=== PATIENT | male | born 1935 | race Caucasian/White ===

== ENCOUNTER 2017-01-22 02:30 | Observation (INO) | payer MEDICARE ==
[2017-01-22] MEDS ORDERED: Sodium Chloride 0.9% 1000 ML 1,000 ML IV STA (02:35)
[2017-01-22] MEDS ORDERED: Rocephin 1000 MG INJ** 1,000 MG in Sodium Chloride 0.9% 100 ML IVPB 100 ML IV ONE (02:35)
[2017-01-22] MEDS ORDERED: Zithromax 500 MG/ 250 ML NaCl Premix 500 MG/250 ML IVPB IV STA (02:35)
[2017-01-22] MEDS ORDERED: Xopenex 1.25 MG/0.5 ML UD NEBULE IH ONE ×2 (02:35→02:56)
--- NOTE | 2017-01-22 02:45 | ERPHSYRPT ---
- History of Present Illness Time Seen by Provider: 01/22/17 02:31 Source: patient, family () Exam Limitations: no limitations Physician History: YESTERDAY PT CHOKED AND AFTER STARTED RATTLING IN THE CHEST WITH CHILLS. TODAY PT HAS HAD SHORTNESS OF AIR. CHEST PAIN, ABDOMINAL PAIN, VOMITING, FEVER ALL DENIED. Allergies/Adverse Reactions: vancomycin Allergy (Verified 01/22/17 03:17) aspirin Adverse Reaction (Severe, Verified 01/22/17 03:17) Home Medications: Clopidogrel Bisulfate 75 mg [PLAVIX 75 MG Tablet] 75 mg PO DAILY 10/19/12 [History] Levothyroxine Sodium 75 Mcg [Synthroid 75 Mcg] 75 mcg PO DAILY 10/19/12 [ History] Methyl-B12/l-Mefolate/B6 Phos [Metanx Tablet] 1 each PO DAILY 10/19/12 [History] Metoprolol Tartrate 25 mg [Lopressor 25MG Tab] 25 mg PO BID 10/19/12 [ History] Pramipexole Di-HCl [Pramipexole Dihydrochloride] 1 mg PO BID 10/19/12 [History] Rasagiline Mesylate [Azilect] 1 mg PO DAILY 10/19/12 [History] Simvastatin 10 mg [Zocor 10MG] 10 mg PO DAILY 03/11/13 [History] Ferrous Sulfate 325 mg [Feosol 325 mg] 325 ng PO DAILY 12/31/14 [History] PANTOPRAZOLE 40 mg Tablet [Protonix 40MG Tablet] 40 mg PO DAILY 12/31/14 [ History] Albuterol 2.5 mg/0.5 ml [PROVENTIL Solution 2.5 MG/0.5 ML] 2.5 mg IH Q4H PRN PRN 01/22/17 [History] Alpha Lipoic Acid 200 mg PO BID 01/22/17 [History] Ascorbic Acid 500 mg [Vitamin C 500 MG] 500 mg PO DAILY 01/22/17 [History] Carbidopa/Levodopa [Sinemet 25-100 mg Tablet] 1 each PO TID 01/22/17 [History] Furosemide 20 mg [Lasix 20 mg] 20 mg PO UD 01/22/17 [History] Midodrine HCl 5 mg [Proamatine 5 mg] 5 mg PO TID 01/22/17 [History] Potassium Chloride 10 Meq Tab* [Klor Con 10 MEQ] 10 meq PO UD 01/22/17 [ History] Pregabalin [Lyrica] 200 mg PO BID 01/22/17 [History] Hx Tetanus, Diphtheria Vaccination/Date Given: Yes Hx Influenza Vaccination/Date Given: Yes Hx Pneumococcal Vaccination/Date Given: Yes - Review of Systems Constitutional: Chills, No Fever Respiratory: Cough, Dyspnea, Other (CHOKED YESTERDAY) Cardiac: No Chest Pain Abdominal/Gastrointestinal: No Abdominal Pain, No Vomiting Neurological: No Headache Endocrine: No Excessive Sweating All Other Systems: Reviewed and Negative - Past Medical History Pertinent Past Medical History: Yes Neurological History: Peripheral Neuropathy, Stroke, Other ENT History: Cataracts Cardiac History: No Pertinent History Respiratory History: COPD Endocrine Medical History: Hypothyroidism Musculoskeletal History: No Pertinent History GI Medical History: Cirrhosis, Esophageal Disorder, GERD History: Renal Disease Psycho-Social History: No Pertinent History Male Reproductive Disorders: No Pertinent History Other Medical History: parkinson - Past Surgical History Past Surgical History: Yes Neuro Surgical History: No Pertinent History Cardiac: No Pertinent History Respiratory: No Pertinent History Gastrointestinal: No Pertinent History, Hernia Repair Genitourinary: No Pertinent History Musculoskeletal: No Pertinent History Male Surgical History: No Pertinent History Other Surgical History: JAW SURG X6 DUE TO CANCER - Social History Smoking Status: Former smoker Exposure to second hand smoke: No Drug Use: none Patient Lives Alone: No Significant Family History: no pertinent family hx - Nursing Vital Signs Nursing Vital Signs: Initial Vital Signs Temperature 97.2 F 01/22/17 02:36 Pulse Rate 103 H 01/22/17 02:36 Respiratory Rate 28 H 01/22/17 02:36 Blood Pressure 168/91 01/22/17 02:36 O2 Sat by Pulse Oximetry 81 L 01/22/17 02:36 Pain Scale Pain Intensity 0 - Physical Exam General Appearance: moderate distress, alert Eye Exam: PERRL/EOMI Ears, Nose, Throat Exam: moist mucous membranes, pharyngeal erythema, other ( CERUMEN OCCLUSION OF EAC'S) Neck Exam: normal inspection Respiratory Exam: respiratory distress, rhonchi Cardiovascular Exam: normal heart sounds Gastrointestinal/Abdomen Exam: soft, normal bowel sounds Back Exam: normal inspection Extremity Exam: other (DECUBITUS ULCER ON MEDIAL ASPECT OF RIGHT FOREFOOT; CYANOTIC NAIL BEDS IN HANDS.) Neurologic Exam: alert, cooperative Skin Exam: warm, dry SpO2 Interpretation: hypoxic SpO2: 72 Oxygen Delivery: Room Air - Course Nursing assessment & vital signs reviewed: Yes EKG Interpreted by Me: RATE (90), Sinus Rhythm, Right Bundle Branch Block, Other (PVC) - Radiology Exams Chest X-ray Interpretation: Interpreted by me (RIGHT LOWER LOBE INFILTRATE) Ordered Tests: Active Orders 24 hr Category Date Time Status Supervisor Tank Storage STAT Care 01/22/17 02:37 Active EKG-ER Only STAT Care 01/22/17 02:35 Active IV Insertion STAT Care 01/22/17 02:35 Active Oxygen-ED Only NASAL CANNULA 4 lpm Care 01/22/17 02:35 Active Pulse Oximetry (ED) STAT Care 01/22/17 02:35 Active CHEST 1 VIEW (PORTABLE) Stat Exams 01/22/17 02:36 Taken ARTERIAL BLOOD GASES Stat Lab 01/22/17 Completed BLOOD CULTURE Stat Lab 01/22/17 03:24 Received CBC W DIFF Stat Lab 01/22/17 03:24 Completed CMP Stat Lab 01/22/17 03:24 Completed CULTURE, THROAT Stat Lab 01/22/17 03:24 Received CULTURE,SPUTUM Stat Lab 01/22/17 02:36 Uncollected Lactic Acid Stat Lab 01/22/17 Completed Manual Differential NC Stat Lab 01/22/17 03:24 Completed STREP SCREEN-BETA A Stat Lab 01/22/17 03:24 Completed TROPONIN Q3H Lab 01/22/17 04:15 Ordered TROPONIN Q3H Lab 01/22/17 07:15 Ordered TROPONIN Q3H Lab 01/22/17 10:15 Ordered TROPONIN Q3H Lab 01/22/17 13:15 Ordered TROPONIN Q3H Lab 01/22/17 16:15 Ordered TROPONIN Q3H Lab 01/22/17 19:15 Ordered TROPONIN Q3H Lab 01/22/17 22:15 Ordered Respiratory Nebulizer STAT RT 01/22/17 03:42 Completed Medication Summary Generic Name Dose Route Start Last Admin Trade Name Freq PRN Reason Stop Dose Admin Piperacillin Sod/Tazobactam Sod 3.375 gm in 100 mls @ 200 mls/hr 01/22/17 03: 46 01/22/17 04:11 Zosyn 3.375gm/100 Ml D5w IV 01/22/17 04:15 200 mls/hr STAT STA Administration Discontinued Medications Generic Name Dose Route Start Last Admin Trade Name Shakeel PRN Reason Stop Dose Admin Ceftriaxone Sodium 1,000 mg/ 100 mls @ 100 mls/hr 01/22/17 02:35 01/22/17 03: 22 Sodium Chloride IV 01/22/17 03:34 100 mls/hr STAT ONE Administration Sodium Chloride 1,000 mls @ 999 mls/hr 01/22/17 02:35 01/22/17 03:21 Sodium Chloride 0.9% 1000 Ml IV 01/22/17 03:35 999 mls/hr .Q1H1M STA Administration Azithromycin 500 mg in 250 mls @ 250 mls/hr 01/22/17 02:35 Zithromax 500 Mg/ 250 Ml Nacl Premix IV 01/22/17 03:34 STAT STA Azithromycin Confirm 01/22/17 02:59 Zithromax 500 Mg/ 250 Ml Nacl Premix Administered 01/22/17 03:00 Dose 500 mg in 250 mls @ ud IV .STK-MED ONE Sodium Chloride Confirm 01/22/17 02:59 Sodium Chloride 0.9% 1000 Ml Administered 01/22/17 03:00 Dose 1,000 mls @ ud .ROUTE .STK-MED ONE Ceftriaxone Sodium/Dextrose Confirm 01/22/17 02:59 Rocephin 1 Gm-D5w 50 Ml Bag Administered 01/22/17 03:00 Dose 1 g in 50 mls @ ud IV .STK-MED ONE Piperacillin Sod/Tazobactam Sod Confirm 01/22/17 04:05 Zosyn 3.375gm/100 Ml D5w Administered 01/22/17 04:06 Dose 3.375 gm in 100 mls @ ud IV .STK-MED ONE Levalbuterol HCl 1.25 mg 01/22/17 02:35 01/22/17 03:00 Xopenex 1.25 Mg/0.5 Ml Ud Nebule IH 01/22/17 02:36 1.25 mg STAT ONE Administration Levalbuterol HCl Confirm 01/22/17 02:56 Xopenex 1.25 Mg/0.5 Ml Ud Nebule Administered 01/22/17 02:57 Dose 1.25 mg IH .STK-MED ONE Sodium Chloride Confirm 01/22/17 02:57 Sodium Chloride 3 Ml Ud Nebules Administered 01/22/17 02:58 Dose 3 ml IH .STK-MED ONE Lab/Rad Data: Laboratory Result Diagrams 01/22/17 03:24 01/22/17 03:24 Laboratory Results 01/22/17 01/22/17 01/22/17 Range/Units Unknown 03:24 03:24 WBC (4.0-10.5) K/mm3 RBC (4.1-5.6) M/mm3 Hgb (12.5-18.0) gm/dl Hct (42-50) % MCV (78-100) fl MCH (26-32) pg MCHC (32-36) g/dl RDW (11.5-14.0) % Plt Count (150-450) K/mm3 MPV (6-9.5) fl Segmented Neutrophils (36.-66.) % Band Neutrophils (0.0-2.0) % Lymphocytes (Manual) (24-44) % Monocytes (Manual) (0.0-12.0) % Eosinophils (Manual) (0.00-3.0) % Differential Comment Platelet Estimate (NORMAL) Puncture Site RIGHT BRACHIAL pCO2 31 L (35-45) mmHg pO2 93 (75-100) mmHg Base Excess -7.1 L (-2.0-2.0) O2 Saturation 95.7 (94-100) g/dF ABG pH 7.35 (7.35-7.45) ABG HCO3 17.1 L (22-28) ABG O2 Sat (Measured) 97.9 (95-100) % Dagoberto Test NOT APPLICABLE A-a Gradient 581 a/A Ratio 0.14 Hemoglobin 16.8 Carboxyhemoglobin 1.5 (0.0-6.9) % THgb Methemoglobin 0.8 L (1.4-1.5) % Temperature 37.0 C POC O2 Flow Rate 100 % Vent Mode BiPAP Inspiratory BiPAP 12 Expiratory BiPAP 6 Sodium 144 (136-145) mEq/L Potassium 3.7 3.5 (3.5-5.1) mEq/L Chloride 111 H (98-107) mEq/L Carbon Dioxide 19.1 L (21-32) mEq/L Anion Gap 17.2 H (5-15) MEQ/L BUN 28 H (9-20) mg/dL Creatinine 1.02 (0.55-1.30) mg/dl Estimated GFR > 60 ML/MIN Glucose 107 (70-110) MG/DL Lactic Acid 1.9 (0.4-2.0) Calcium 9.0 (8.5-10.1) mg/dL Total Bilirubin 0.80 (0.2-1.0) mg/dL AST 30 (15-37) U/L ALT 7 L (12-78) U/L Alkaline Phosphatase 105 (46-116) U/L Serum Total Protein 6.9 (6.4-8.2) gm/dL Albumin 3.3 L (3.4-5.0) g/dL Streptococcus Screen NEGATIVE (Negative) 01/22/17 Range/Units 03:24 WBC 8.3 (4.0-10.5) K/mm3 RBC 5.21 (4.1-5.6) M/mm3 Hgb 15.6 (12.5-18.0) gm/dl Hct 46.2 (42-50) % MCV 88.7 (78-100) fl MCH 29.9 (26-32) pg MCHC 33.8 (32-36) g/dl RDW 15.9 H (11.5-14.0) % Plt Count 115 L (150-450) K/mm3 MPV 12.7 H (6-9.5) fl Segmented Neutrophils 74 H (36.-66.) % Band Neutrophils 12 H (0.0-2.0) % Lymphocytes (Manual) 12 L (24-44) % Monocytes (Manual) 1 (0.0-12.0) % Eosinophils (Manual) 1 (0.00-3.0) % Differential Comment NORMAL Platelet Estimate NORMAL (NORMAL) Puncture Site pCO2 (35-45) mmHg pO2 (75-100) mmHg Base Excess (-2.0-2.0) O2 Saturation (94-100) g/dF ABG pH (7.35-7.45) ABG HCO3 (22-28) ABG O2 Sat (Measured) (95-100) % Dagoberto Test A-a Gradient a/A Ratio Hemoglobin Carboxyhemoglobin (0.0-6.9) % THgb Methemoglobin (1.4-1.5) % Temperature C POC O2 Flow Rate % Vent Mode Inspiratory BiPAP Expiratory BiPAP Sodium (136-145) mEq/L Potassium (3.5-5.1) mEq/L Chloride (98-107) mEq/L Carbon Dioxide (21-32) mEq/L Anion Gap (5-15) MEQ/L BUN (9-20) mg/dL Creatinine (0.55-1.30) mg/dl Estimated GFR ML/MIN Glucose (70-110) MG/DL Lactic Acid (0.4-2.0) Calcium (8.5-10.1) mg/dL Total Bilirubin (0.2-1.0) mg/dL AST (15-37) U/L ALT (12-78) U/L Alkaline Phosphatase (46-116) U/L Serum Total Protein (6.4-8.2) gm/dL Albumin (3.4-5.0) g/dL Streptococcus Screen (Negative) - Progress Discussed with : Other (DR YOU([id number]) - OBS) - Departure Time of Disposition: 04:15 Departure Disposition: Observation Clinical Impression: RESPIRATORY DISTRESS, PNEUMONIA, PN, COPD, HYPOTHYROIDISM, CIRRHOSIS, GERD, PARKINSONISM, DECUBITUS ULCER ON RIGHT FOOT Condition: Stable Critical Care Time: Yes Critical Care Time(excluding separately billable procedures): 30-74 minutes Referrals: NICOLE SOW [Primary Care Provider] -
[2017-01-22] MEDS ORDERED: Sodium Chloride 3 ML UD NEBULES IH ONE (02:57)
[2017-01-22] MEDS ORDERED: Zithromax 500 MG/ 250 ML NaCl Premix 500 MG/250 ML IVPB IV ONE (02:59)
[2017-01-22] MEDS ORDERED: Sodium Chloride 0.9% 1000 ML 1,000 ML ONE (02:59)
[2017-01-22] MEDS ORDERED: ROCEPHIN 1 Gm-D5w 50 ml Bag** 1 G/50 ML IVPB IV ONE (02:59)
[2017-01-22 03:12] LABS: A-aADO2 581; ARTERIAL BLD GAS O2 SATURATION 97.9 % (95-100); ARTERIAL BLOOD GAS BASE EXCESS -7.1 (-2.0-2.0); ARTERIAL BLOOD GAS FIO2 100 %; ARTERIAL BLOOD GAS PO2 93 mmHg (75-100); ARTERIAL BLOOD GAS pH 7.35 (7.35-7.45); BIPAP(E) 6; BIPAP(I) 12; Lactic Acid 1.9 (0.4-2.0)
[2017-01-22 03:28] LABS: Mean Cell Volume 88.7 fl (78-100); Mean Corpuscular Hemoglobin 29.9 pg (26-32); Mean Platelet Volume 12.7 fl (6-9.5); Platelet Count 115 K/mm3 (150-450); Red Blood Count 5.21 M/mm3 (4.1-5.6); Red Cell Distribution Width 15.9 % (11.5-14.0); White Blood Count 8.3 K/mm3 (4.0-10.5)
[2017-01-22] MEDS ORDERED: Zosyn 3.375GM/100 Ml D5W 3.375 GM/100 ML IVPB IV STA (03:46)
[2017-01-22 03:51] LABS: ALBUMIN 3.3 g/dL (3.4-5.0); ALKALINE PHOSPHATASE 105 U/L (46-116); ANION GAP 17.2 MEQ/L (5-15); BLOOD UREA NITROGEN 28 mg/dL (9-20); CHLORIDE 111 mEq/L (98-107); Carbon Dioxide 19.1 mEq/L (21-32); Glucose 107 MG/DL (70-110); Potassium 3.5 mEq/L (3.5-5.1); SGOT/AST 30 U/L (15-37); SGPT/ALT 7 U/L (12-78); SODIUM 144 mEq/L (136-145); Total Protein 6.9 gm/dL (6.4-8.2)
[2017-01-22] MEDS ORDERED: Zosyn 3.375GM/100 Ml D5W 3.375 GM/100 ML IVPB IV ONE (04:05)
[2017-01-22 04:07] LABS: BAND 12 % (0.0-2.0); Eosinophil 1 % (0.00-3.0); Platelet Estimate NORMAL (NORMAL); Total Cells Counted 100
[2017-01-22] MEDS ORDERED: TYLENOL 325 MG PO PRN (04:55)
[2017-01-22] MEDS ORDERED: Phenergan 25 MG INJ IV PRN (04:55)
[2017-01-22] MEDS ORDERED: PROVENTIL 2.5 MG/3 ML NEB IH PRN (04:55)
[2017-01-22] MEDS: Sodium Chloride 0.9% 1000 ML 1,000 ML IV SCH ×2 (05:39→19:28)
[2017-01-22] MEDS: Zosyn 3.375GM/100 Ml D5W 3.375 GM/100 ML IVPB IV SCH ×3 (06:01→17:41)
[2017-01-22] MEDS ORDERED: DUONEB 0.5-3 MG/3 ml Neb IH SCH (07:00)
--- NOTE | 2017-01-22 08:10 | PCM.HP ---
History of Present Illness - Chief Complaint Chief Complaint: RESPIRATORY DISTRESS; PNEUMONIA. History of Present Illness: is a 81 year old male came to the emergency room with complaining of cough, fever, chills, after having a choking episode last night. Patient is also complaining of chest congestion and chest tightness. - Review of Systems Constitutional: Fever, Chills, Fatigue, Lethargy Eyes: No Symptoms Ears, Nose, & Throat: No Symptoms Respiratory: Cough, Short Of Breath, Wheezing Cardiac: No Chest Pain, No Edema, No Syncope Abdominal/Gastrointestinal: No Abdominal Pain, No Nausea, No Vomiting, No Diarrhea Genitourinary Symptoms: No Dysuria Musculoskeletal: No Back Pain, No Neck Pain Skin: No Rash Neurological: No Dizziness, No Focal Weakness, No Sensory Changes Psychological: No Symptoms Endocrine: No Symptoms Hematologic/Lymphatic: No Symptoms Immunological/Allergic: No Symptoms Medications & Allergies Home Medications: Home Medication List Clopidogrel Bisulfate 75 mg [PLAVIX 75 MG Tablet] 75 mg PO DAILY 10/19/12 [History Confirmed 01/22/17] Levothyroxine Sodium 75 Mcg [Synthroid 75 Mcg] 75 mcg PO DAILY 10/19/12 [ History Confirmed 01/22/17] Methyl-B12/l-Mefolate/B6 Phos [Metanx Tablet] 1 each PO DAILY 10/19/12 [History Confirmed 01/22/17] Metoprolol Tartrate 25 mg [Lopressor 25MG Tab] 25 mg PO BID 10/19/12 [ History Confirmed 01/22/17] Pramipexole Di-HCl [Pramipexole Dihydrochloride] 1 mg PO BID 10/19/12 [History Confirmed 01/22/17] Rasagiline Mesylate [Azilect] 1 mg PO DAILY 10/19/12 [History Confirmed 01/22/17 ] Simvastatin 10 mg [Zocor 10MG] 10 mg PO DAILY 03/11/13 [History Confirmed ] Ferrous Sulfate 325 mg [Feosol 325 mg] 325 ng PO DAILY 12/31/14 [History Confirmed 01/22/17] PANTOPRAZOLE 40 mg Tablet [Protonix 40MG Tablet] 40 mg PO DAILY 12/31/14 [ History Confirmed 01/22/17] Albuterol 2.5 mg/0.5 ml [PROVENTIL Solution 2.5 MG/0.5 ML] 2.5 mg IH Q4H PRN PRN 01/22/17 [History Confirmed 01/22/17] Alpha Lipoic Acid 200 mg PO BID 01/22/17 [History Confirmed 01/22/17] Ascorbic Acid 500 mg [Vitamin C 500 MG] 500 mg PO DAILY 01/22/17 [History Confirmed 01/22/17] Carbidopa/Levodopa [Sinemet 25-100 mg Tablet] 1 each PO TID 01/22/17 [History Confirmed 01/22/17] Furosemide 20 mg [Lasix 20 mg] 20 mg PO UD 01/22/17 [History Confirmed ] Midodrine HCl 5 mg [Proamatine 5 mg] 5 mg PO TID 01/22/17 [History Confirmed 01/22/17] Potassium Chloride 10 Meq Tab* [Klor Con 10 MEQ] 10 meq PO UD 01/22/17 [ History Confirmed 01/22/17] Pregabalin [Lyrica] 200 mg PO BID 01/22/17 [History Confirmed 01/22/17] Allergies/Adverse Reactions: Allergies Allergy/AdvReac Type Severity Reaction Status Date / Time vancomycin Allergy Severe Verified 01/22/17 05:59 aspirin AdvReac Severe Verified 01/22/17 05:59 - Past Medical History Past Medical History: Yes Neurological History: Peripheral Neuropathy, Stroke, Other ENT History: Cataracts Cardiac History: No Pertinent History, High Cholesterol, Hypertension, Myocardial Infarction (CT) Respiratory History: COPD, Pneumonia Endocrine Medical History: Hypothyroidism Musculoskelatal History: Arthritis, Bone Cancer GI Medical History: Cirrhosis, Esophageal Disorder, GERD History: Renal Disease Pyscho-Social History: No Pertinent History Male Reproductive Disorders: No Pertinent History Comment: parkinson - Past Surgical History Past Surgical History: Yes Neuro Surgical History: No Pertinent History Cardiac History: No Pertinent History Respiratory Surgery: No Pertinent History GI Surgical History: No Pertinent History, Hernia Repair Genitourinary Surgical Hx: No Pertinent History Musculskeletal Surgical Hx: Orthopedic Surgery Male Surgical History: No Pertinent History Other Surgical History: 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 - Social History Smoking Status: Former smoker Exposure to second hand smoke: No Alcohol: Rarely Drug Use: none Significant Family History: no pertinent family hx - Physical Exam Vital Signs: Vital Signs - 24 hr Temp Pulse Resp BP Pulse Ox 01/22/17 07:49 78 18 96 01/22/17 04:55 86 18 97 01/22/17 04:15 72 L 01/22/17 04:00 82 19 120/60 100 01/22/17 03:42 90 24 95 01/22/17 03:31 100 01/22/17 03:07 88 19 158/79 97 01/22/17 02:44 28 H 81 L 01/22/17 02:36 97.2 F 103 H 28 H 168/91 83 L Oxygen-Last 24 hours O2 Percentage 100% O2 Percentage 100% O2 Percentage 6 Liters = 44% O2 Percentage 4 Liters = 36% O2 Percentage 4 Liters = 36% O2 Percentage 4 Liters = 36% General Appearance: no apparent distress, alert Neurologic Exam: alert, oriented x 3, cooperative, normal mood/affect, nml cerebellar function, nml station & gait, sensation nml, No motor deficits Eye Exam: PERRL/EOMI, eyes nml inspection Ears, Nose, Throat Exam: normal ENT inspection, TMs normal, pharynx normal, moist mucous membranes Neck Exam: normal inspection, non-tender, supple, full range of motion Respiratory Exam: respiratory distress, diminished breath sounds, crackles/rales , rhonchi, wheezing Cardiovascular Exam: regular rate/rhythm, normal heart sounds, normal peripheral pulses Gastrointestinal/Abdomen Exam: soft, normal bowel sounds, No tenderness, No mass Back Exam: normal inspection, normal range of motion, No CVA tenderness, No vertebral tenderness Extremity Exam: normal inspection, normal range of motion, pelvis stable Skin Exam: normal color, warm, dry, No rash Lymphatic Exam: No adenopathy Results - Labs Lab/Micro Results: Lab Results-Last 24 Hours 01/22/17 Range/Units Unknown Puncture Site RIGHT BRACHIAL pCO2 31 L (35-45) mmHg pO2 93 (75-100) mmHg Base Excess -7.1 L (-2.0-2.0) O2 Saturation 95.7 (94-100) g/dF ABG pH 7.35 (7.35-7.45) ABG HCO3 17.1 L (22-28) ABG O2 Sat (Measured) 97.9 (95-100) % Dagoberto Test NOT APPLICABLE A-a Gradient 581 a/A Ratio 0.14 Hemoglobin 16.8 Carboxyhemoglobin 1.5 (0.0-6.9) % THgb Methemoglobin 0.8 L (1.4-1.5) % Potassium 3.7 (3.5-5.1) Temperature 37.0 C POC O2 Flow Rate 100 % Vent Mode BiPAP Inspiratory BiPAP 12 Expiratory BiPAP 6 Lactic Acid 1.9 (0.4-2.0) - Other Procedures and Tests Respiratory Therapy 01/22/17 05:33 Respiratory Nebulizer PRN 01/22/17 07:48 Oxygen NASAL CANNULA 5 lpm Assessment/Plan (1) Pneumonia Current Visit: Yes Status: Acute Qualifiers: Pneumonia type: aspiration pneumonia Laterality: right Lung location: lower lobe of lung Assessment & Plan: Last Vital Signs Temp 97.2 F 01/22/17 02:36 Pulse 78 01/22/17 07:49 Resp 18 01/22/17 07:49 BP 120/60 01/22/17 04:00 Pulse Ox 96 01/22/17 07:49 Allergies vancomycin Allergy (Severe, Verified 01/22/17 05:59) aspirin Adverse Reaction (Severe, Verified 01/22/17 05:59) Active Medications Acetaminophen (Tylenol 325 Mg) 650 mg PO Q4H PRN PRN PRN Reason: PAIN AND/OR FEVER Stop: 02/21/17 04:54 Albuterol Sulfate (Proventil 2.5 Mg/3 Ml Neb) 2.5 mg IH Q2H PRN PRN PRN Reason: SHORTNESS OF BREATH/WHEEZING Stop: 02/21/17 04:54 Piperacillin Sod/Tazobactam Sod (Zosyn 3.375gm/100 Ml D5w) 3.375 gm in 100 mls @ 200 mls/hr IV Q6HT DAYAN Stop: 02/21/17 05:59 Last Admin: 01/22/17 06:01 Dose: Not Given Sodium Chloride (Sodium Chloride 0.9% 1000 Ml) 1,000 mls @ 100 mls/hr IV .Q10H DAYAN Stop: 02/21/17 04:54 Last Admin: 01/22/17 05:39 Dose: 100 mls/hr Promethazine HCl (Phenergan 25 Mg Inj) 12.5 mg IV Q6H PRN PRN PRN Reason: NAUSEA/VOMITING Stop: 02/21/17 04:54 Intake & Output 01/21/17 01/22/17 11:59 11:59 Weight 74.843 kg Orders 01/22/17 05:33 Respiratory Nebulizer PRN 01/22/17 07:02 CULTURE,WOUND Routine 01/22/17 07:48 Oxygen NASAL CANNULA 5 lpm 01/22/17 Breakfast Mechanical Soft Thickened Liquids Lab Tests 01/22/17 01/22/17 01/22/17 03:00 03:24 03:24 WBC 8.3 RBC 5.21 Hgb 15.6 Hct 46.2 MCV 88.7 MCH 29.9 MCHC 33.8 RDW 15.9 H Plt Count 115 L MPV 12.7 H Segmented Neutrophils 74 H Band Neutrophils 12 H Lymphocytes (Manual) 12 L Monocytes (Manual) 1 Eosinophils (Manual) 1 Differential Comment NORMAL Platelet Estimate NORMAL Puncture Site pCO2 pO2 Base Excess O2 Saturation ABG pH ABG HCO3 ABG O2 Sat (Measured) Dagoberto Test A-a Gradient a/A Ratio Hemoglobin Carboxyhemoglobin Methemoglobin Temperature POC O2 Flow Rate Vent Mode Inspiratory BiPAP Expiratory BiPAP Sodium 144 Potassium 3.5 Chloride 111 H Carbon Dioxide 19.1 L Anion Gap 17.2 H BUN 28 H Creatinine 1.02 Estimated GFR > 60 Glucose 107 Lactic Acid Calcium 9.0 Total Bilirubin 0.80 AST 30 ALT 7 L Alkaline Phosphatase 105 Troponin I < 0.017 Serum Total Protein 6.9 Albumin 3.3 L Influenza Type A Ag Influenza Type B Ag RSV (PCR) Streptococcus Screen 01/22/17 01/22/17 01/22/17 03:24 03:24 Unknown WBC RBC Hgb Hct MCV MCH MCHC RDW Plt Count MPV Segmented Neutrophils Band Neutrophils Lymphocytes (Manual) Monocytes (Manual) Eosinophils (Manual) Differential Comment Platelet Estimate Puncture Site RIGHT BRACHIAL pCO2 31 L pO2 93 Base Excess -7.1 L O2 Saturation 95.7 ABG pH 7.35 ABG HCO3 17.1 L ABG O2 Sat (Measured) 97.9 Dagoberto Test NOT APPLICABLE A-a Gradient 581 a/A Ratio 0.14 Hemoglobin 16.8 Carboxyhemoglobin 1.5 Methemoglobin 0.8 L Temperature 37.0 POC O2 Flow Rate 100 Vent Mode BiPAP Inspiratory BiPAP 12 Expiratory BiPAP 6 Sodium Potassium 3.7 Chloride Carbon Dioxide Anion Gap BUN Creatinine Estimated GFR Glucose Lactic Acid 1.9 Calcium Total Bilirubin AST ALT Alkaline Phosphatase Troponin I Serum Total Protein Albumin Influenza Type A Ag NEGATIVE Influenza Type B Ag NEGATIVE RSV (PCR) NEGATIVE Streptococcus Screen NEGATIVE Code(s): J18.9 - PNEUMONIA, UNSPECIFIED ORGANISM (2) Shortness of breath Current Visit: No Status: Acute Code(s): R06.02 - SHORTNESS OF BREATH
[2017-01-22] MEDS ORDERED: MEDICATION INTERVENTION MC SCH (09:15)
[2017-01-22] MEDS ORDERED: RASAGILINE MESYLATE 1 MG PO SCH (10:00)
[2017-01-22] MEDS ORDERED: PRAMIPEXOLE DI HCL 1 MG PO SCH (10:00)
[2017-01-22] MEDS ORDERED: B6 PHOS PO SCH (10:00)
[2017-01-22] MEDS ORDERED: MEFOLATE PO SCH (10:00)
[2017-01-22] MEDS ORDERED: PREGABALIN 200 MG PO SCH (10:00)
[2017-01-22] MEDS ORDERED: METHYL B12 PO SCH (10:00)
[2017-01-22] MEDS ORDERED: ENOXAPARIN SODIUM SQ SCH (10:00)
[2017-01-22] MEDS: FEOSOL 325 MG PO SCH (10:24)
[2017-01-22] MEDS: Zocor 10MG PO SCH (10:24)
[2017-01-22] MEDS: PLAVIX 75 MG Tablet PO SCH (10:24)
[2017-01-22] MEDS: SYNTHROID 75 MCG PO SCH (10:24)
[2017-01-22] MEDS: Protonix 40MG Tablet PO SCH (10:24)
[2017-01-22] MEDS: Lopressor 25MG Tab PO SCH ×2 (10:25→21:50)
[2017-01-22] MEDS: Vitamin C 500 MG PO SCH (10:25)
[2017-01-22] MEDS: FOLTX (FOLBIC) PO SCH (10:25)
[2017-01-22] MEDS: LYRICA 100MG PO SCH ×2 (10:26→21:50)
[2017-01-22] MEDS: Sinemet 25/100 MG PO SCH ×3 (10:26→21:50)
[2017-01-22] MEDS: Mirapex 0.5 MG Tablet PO SCH ×2 (10:26→21:49)
[2017-01-22] MEDS: PROAMATINE 5 MG PO SCH ×3 (10:26→21:49)
--- NOTE | 2017-01-22 10:33 | XRAY ---
Indication: Cough. Comparison: December 31, 2014. Portable chest again demonstrates chronic lung markings and scattered calcified granulomas. New right mid to lower lung airspace disease with small effusion. Heart is not enlarged. Stable large subcarinal calcified node and small hiatal hernia. Bony thorax intact again with osteopenia and degenerative changes. Impression: New right mid to lower lung airspace disease with small effusion.
[2017-01-22 10:35] LABS: Mean Cell Volume 90.6 fl (78-100); Mean Corpuscular Hemoglobin 30.4 pg (26-32); Mean Platelet Volume 12.6 fl (6-9.5); Platelet Count 124 K/mm3 (150-450); Red Blood Count 4.27 M/mm3 (4.1-5.6); Red Cell Distribution Width 15.8 % (11.5-14.0); White Blood Count 13.2 K/mm3 (4.0-10.5)
[2017-01-22] MEDS: ENOXAPARIN SODIUM SQ SCH (10:50)
[2017-01-22 11:11] LABS: ALBUMIN 2.7 g/dL (3.4-5.0); ALKALINE PHOSPHATASE 72 U/L (46-116); ANION GAP 16.6 MEQ/L (5-15); BLOOD UREA NITROGEN 28 mg/dL (9-20); CHLORIDE 114 mEq/L (98-107); Carbon Dioxide 20.2 mEq/L (21-32); Glucose 143 MG/DL (70-110); SGOT/AST 21 U/L (15-37); SGPT/ALT 14 U/L (12-78); SODIUM 147 mEq/L (136-145); Total Protein 5.8 gm/dL (6.4-8.2)
[2017-01-22 11:16] LABS: TROPONIN < 0.017 ng/ml (0.000-0.056)
[2017-01-22 11:38] LABS: BAND 2 % (0.0-2.0); Platelet Estimate NORMAL (NORMAL); Total Cells Counted 100; Toxic Granulation 2+
[2017-01-22 11:39] LABS: ANISOCYTOSIS 1+
[2017-01-23] MEDS: Zosyn 3.375GM/100 Ml D5W 3.375 GM/100 ML IVPB IV SCH ×4 (00:20→18:07)
[2017-01-23] MEDS: Sodium Chloride 0.9% 1000 ML 1,000 ML IV SCH ×2 (06:00→16:59)
--- NOTE | 2017-01-23 09:21 | XRAY ---
Indication: Follow-up aspiration pneumonia. Comparison: One day earlier. Portable chest again underinflated with minimally worsening right mid to lower lung infiltrate with small effusion. Heart is not enlarged. Elsewhere stable chronic lung markings, subcarinal calcified node, and hiatal hernia. No new abnormalities.
[2017-01-23] MEDS: Vitamin C 500 MG PO SCH (09:28)
[2017-01-23] MEDS: Sinemet 25/100 MG PO SCH ×3 (09:28→21:03)
[2017-01-23] MEDS: Protonix 40MG Tablet PO SCH (09:28)
[2017-01-23] MEDS: PLAVIX 75 MG Tablet PO SCH (09:28)
[2017-01-23] MEDS: SYNTHROID 75 MCG PO SCH (09:28)
[2017-01-23] MEDS: Zocor 10MG PO SCH (09:28)
[2017-01-23] MEDS: LYRICA 100MG PO SCH ×2 (09:28→21:07)
[2017-01-23] MEDS: Mirapex 0.5 MG Tablet PO SCH ×2 (09:28→21:03)
[2017-01-23] MEDS: Lopressor 25MG Tab PO SCH ×2 (09:28→21:03)
[2017-01-23] MEDS: FEOSOL 325 MG PO SCH (09:28)
[2017-01-23] MEDS: ENOXAPARIN SODIUM SQ SCH (09:29)
[2017-01-23] MEDS: PROAMATINE 5 MG PO SCH ×3 (09:30→21:13)
[2017-01-23] MEDS: FOLTX (FOLBIC) PO SCH (09:30)
[2017-01-23 09:31] LABS: Mean Cell Volume 91.4 fl (78-100); Mean Corpuscular Hemoglobin 30.6 pg (26-32); Mean Platelet Volume 13.6 fl (6-9.5); Platelet Count 92 K/mm3 (150-450); Red Blood Count 4.67 M/mm3 (4.1-5.6); Red Cell Distribution Width 16.5 % (11.5-14.0)
[2017-01-23 09:49] LABS: ANION GAP 15.5 MEQ/L (5-15); BLOOD UREA NITROGEN 19 mg/dL (9-20); CHLORIDE 114 mEq/L (98-107); Carbon Dioxide 19.4 mEq/L (21-32); Glucose 67 MG/DL (70-110); Potassium 3.8 mEq/L (3.5-5.1); SODIUM 145 mEq/L (136-145)
[2017-01-23] MEDS ORDERED: FLUZONE HIGH-DOSE 2017-18 SYR IM ONE (10:00)
[2017-01-23] MEDS ORDERED: Klor Con 10 MEQ PO SCH (10:00)
[2017-01-23] MEDS ORDERED: LASIX 20 MG PO SCH (10:00)
--- NOTE | 2017-01-23 13:20 | PCM.NOTE ---
Date and Time: 01/23/17 1319 Subjective Assessment: continue present management - Review of Systems Constitutional: No Fever, No Chills Eyes: No Symptoms Ears, Nose, & Throat: No Symptoms Respiratory: Cough, Short Of Breath Cardiac: No Chest Pain, No Edema, No Syncope Abdominal/Gastrointestinal: No Abdominal Pain, No Nausea, No Vomiting, No Diarrhea Genitourinary Symptoms: No Dysuria Musculoskeletal: No Back Pain, No Neck Pain Skin: No Rash Neurological: No Dizziness, No Focal Weakness, No Sensory Changes Psychological: No Symptoms Endocrine: No Symptoms Hematologic/Lymphatic: No Symptoms Immunological/Allergic: No Symptoms Objective Exam General Appearance: no apparent distress, alert Neurologic Exam: alert, oriented x 3, cooperative, normal mood/affect, nml cerebellar function, sensation nml, No motor deficits Skin Exam: normal color, warm, dry Eye Exam: PERRL, EOMI, eyes nml inspection Ears, Nose, Throat Exam: normal ENT inspection, pharynx normal, moist mucous membranes Neck Exam: normal inspection, non-tender, supple, full range of motion Respiratory Exam: normal breath sounds, lungs clear, No respiratory distress Cardiovascular Exam: regular rate/rhythm, normal heart sounds Gastrointestinal/Abdomen Exam: soft, No tenderness, No mass Extremity Exam: normal inspection, normal range of motion Back Exam: normal inspection, normal range of motion, No CVA tenderness, No vertebral tenderness Male Genitalia Exam: deferred Rectal Exam: deferred OBJECTIVE DATA Vital Signs: Vital Signs - 24 hr Temp Pulse Resp BP Pulse Ox 01/23/17 12:00 98.2 F 61 18 159/77 95 01/23/17 07:22 98.2 F 62 18 187/76 92 L 01/23/17 06:41 69 18 99 01/23/17 06:00 18 01/23/17 04:00 98.5 F 71 17 151/70 90 L 01/23/17 02:00 17 01/23/17 00:00 98.2 F 76 17 149/67 92 L 01/22/17 22:00 18 01/22/17 20:05 76 18 95 01/22/17 20:00 97.8 F 76 18 123/58 94 L 01/22/17 16:00 98.2 F 76 18 96/52 92 L 01/22/17 14:00 18 Oxygen-Last 24 hours O2 Percentage 2 Liters = 28% O2 Percentage 4 Liters = 36% O2 Percentage 4 Liters = 36% O2 Percentage 3 Liters = 32% O2 Percentage 2 Liters = 28% Pain Assessment - Last Documented Pain Intensity 0 Pain Scale Used 0-10 Pain Scale,FLACC Intake and Output: Intake & Output 01/21/17 01/22/17 01/23/17 01/24/17 11:59 11:59 11:59 11:59 Intake Total 1730 Output Total 375 800 Balance -375 930 Weight 74.843 kg 73.437 kg Lab Results: Lab Results-Last 24 Hours 01/23/17 01/23/17 Range/Units 09:29 09:29 WBC 11.0 H (4.0-10.5) K/mm3 RBC 4.67 (4.1-5.6) M/mm3 Hgb 14.3 (12.5-18.0) gm/dl Hct 42.7 (42-50) % MCV 91.4 (78-100) fl MCH 30.6 (26-32) pg MCHC 33.5 (32-36) g/dl RDW 16.5 H (11.5-14.0) % Plt Count 92 L (150-450) K/mm3 MPV 13.6 H (6-9.5) fl Sodium 145 (136-145) mEq/L Potassium 3.8 (3.5-5.1) mEq/L Chloride 114 H (98-107) mEq/L Carbon Dioxide 19.4 L (21-32) mEq/L Anion Gap 15.5 H (5-15) MEQ/L BUN 19 (9-20) mg/dL Creatinine 0.82 (0.55-1.30) mg/dl Estimated GFR > 60 ML/MIN Glucose 67 L (70-110) MG/DL Calcium 8.4 L (8.5-10.1) mg/dL Slides for Path Review YES Radiology Exams: Radiology Procedures Category Date Time Status CHEST 1 VIEW (PORTABLE) Urgent Exams 01/23/17 08:53 Completed Multi-Disciplinary Progress Notes: Multi-Disciplinary Progress Notes 01/23/17 11:39 Respiratory Note by Toshia Jimenez [id number] PLACED ON ROOM AIR RESTING SPO2 84%. PLACED ON N/C 2LPM SPO2 91 POST 3MIN Initialized on 01/23/17 11:39 - END OF NOTE Assessment/Plan (1) Pneumonia Current Visit: Yes Status: Acute Qualifiers: Pneumonia type: aspiration pneumonia Laterality: right Lung location: lower lobe of lung Code(s): J18.9 - PNEUMONIA, UNSPECIFIED ORGANISM (2) Shortness of breath Current Visit: Yes Status: Acute Code(s): R06.02 - SHORTNESS OF BREATH
[2017-01-23] MEDS ORDERED: Catapres 0.1 MG PO ONE (22:58)
[2017-01-24] MEDS: Zosyn 3.375GM/100 Ml D5W 3.375 GM/100 ML IVPB IV SCH ×2 (00:01→06:25)
[2017-01-24] MEDS: ENOXAPARIN SODIUM SQ SCH (10:40)
[2017-01-24] MEDS: LYRICA 100MG PO SCH (10:40)
[2017-01-24] MEDS: Protonix 40MG Tablet PO SCH (10:40)
[2017-01-24] MEDS: Mirapex 0.5 MG Tablet PO SCH (10:40)
[2017-01-24] MEDS: PLAVIX 75 MG Tablet PO SCH (10:40)
[2017-01-24] MEDS: FEOSOL 325 MG PO SCH (10:40)
[2017-01-24] MEDS: SYNTHROID 75 MCG PO SCH (10:40)
[2017-01-24] MEDS: Lopressor 25MG Tab PO SCH (10:40)
[2017-01-24] MEDS: Sinemet 25/100 MG PO SCH (10:40)
[2017-01-24] MEDS: Vitamin C 500 MG PO SCH (10:40)
[2017-01-24] MEDS: PROAMATINE 5 MG PO SCH (10:40)
[2017-01-24] MEDS: FOLTX (FOLBIC) PO SCH (10:40)
[2017-01-24] MEDS: Zocor 10MG PO SCH (10:40)
[2017-01-24 11:52] VITALS: BP 132/74; PULSE 68; O2SAT 92
== END 2017-01-24 12:40 | disposition home or self-care (01) ==
LOC: ED 02:30 → ICU 04:38 → MED SURG 12:58
PROVIDERS: ADMIT General Practice; ATTEND General Practice
DX: J18.9 Pneumonia, unspecified organism (principal)
CPT/HCPCS: 36000; 36415; 36600; 71010; 80048; 80053; 82375; 82803; 83605; 84484; 85025; 85027; 87040; 87070; 87077; 87186; 87430; 87631; 93005; 93041; 94002; 94640; 94760; 96360; 96361; 96365; 96367; 99285; G0008; G0378; J0456; J0696; J1650; J2543; 90662; A9270-GY

== ENCOUNTER 2017-04-28 20:02 | Emergency (ER) | payer MEDICARE ==
[2017-04-28 20:18] VITALS: BP 99/49
[2017-04-28] MEDS ORDERED: ROCEPHIN 1 Gm-D5w 50 ml Bag** 1 G/50 ML IVPB IV STA (20:38)
[2017-04-28] MEDS ORDERED: Zithromax 500 MG/ 250 ML NaCl Premix 500 MG/250 ML IVPB IV STA (20:38)
[2017-04-28] MEDS ORDERED: DUONEB 0.5-3 MG/3 ml Neb IH ONE ×3 (20:38→21:52)
[2017-04-28] MEDS ORDERED: solu-MEDROL 125 MG IV ONE (20:38)
[2017-04-28] MEDS ORDERED: Sodium Chloride 0.9% 1000 ML 1,000 ML IV STA (20:38)
--- NOTE | 2017-04-28 20:43 | ERPHSYRPT ---
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 His oxygen saturation dropped today, so his brought him into the emergency room. In the emergency room. Patient was alert, awake, oriented, was able to answer all the questions but was complaining of some shortness of breath and cough. Patient also has a history of off and on aspiration pneumonia due to Parkinson' s disease. Timing/Duration: day(s) Severity of Dyspnea-Max: moderate Severity of Dyspnea-Current: moderate Possible Cause: frequent episodes Associated Symptoms: cough, wheezing, weakness, chills International travel in last 2 weeks: No Allergies/Adverse Reactions: vancomycin Allergy (Severe, Verified 01/22/17 05:59) aspirin Adverse Reaction (Severe, Verified 01/22/17 05:59) Home Medications: Clopidogrel Bisulfate 75 mg [PLAVIX 75 MG Tablet] 75 mg PO DAILY 10/19/12 [History] Levothyroxine Sodium 75 Mcg [Synthroid 75 Mcg] 75 mcg PO DAILY 10/19/12 [ History] Methyl-B12/l-Mefolate/B6 Phos [Metanx Tablet] 1 each PO DAILY 10/19/12 [History] Metoprolol Tartrate 25 mg [Lopressor 25MG Tab] 25 mg PO BID 10/19/12 [ History] Pramipexole Di-HCl [Pramipexole Dihydrochloride] 1 mg PO BID 10/19/12 [History] Rasagiline Mesylate [Azilect] 1 mg PO DAILY 10/19/12 [History] Simvastatin 10 mg [Zocor 10MG] 10 mg PO DAILY 03/11/13 [History] Ferrous Sulfate 325 mg [Feosol 325 mg] 325 ng PO DAILY 12/31/14 [History] PANTOPRAZOLE 40 mg Tablet [Protonix 40MG Tablet] 40 mg PO DAILY 12/31/14 [ History] Albuterol 2.5 mg/0.5 ml [PROVENTIL Solution 2.5 MG/0.5 ML] 2.5 mg IH Q4H PRN PRN 01/22/17 [History] Alpha Lipoic Acid 200 mg PO BID 01/22/17 [History] Ascorbic Acid 500 mg [Vitamin C 500 MG] 500 mg PO DAILY 01/22/17 [History] Carbidopa/Levodopa [Sinemet 25-100 mg Tablet] 1 each PO TID 01/22/17 [History] Furosemide 20 mg [Lasix 20 mg] 20 mg PO UD 01/22/17 [History] Midodrine HCl 5 mg [Proamatine 5 mg] 5 mg PO TID 01/22/17 [History] Potassium Chloride 10 Meq Tab* [Klor Con 10 MEQ] 10 meq PO UD 01/22/17 [ History] Pregabalin [Lyrica] 200 mg PO BID 01/22/17 [History] Hx Tetanus, Diphtheria Vaccination/Date Given: Yes Hx Influenza Vaccination/Date Given: Yes Hx Pneumococcal Vaccination/Date Given: Yes Immunizations Up to Date: Yes - Review of Systems Constitutional: Fever, Chills, Fatigue, Weakness Eyes: No Symptoms Ears, Nose, & Throat: No Symptoms Respiratory: Cough, Dyspnea, Wheezing Cardiac: No Chest Pain, No Edema, No Syncope Abdominal/Gastrointestinal: No Abdominal Pain, No Nausea, No Vomiting, No Diarrhea Genitourinary Symptoms: No Dysuria Musculoskeletal: No Back Pain, No Neck Pain Skin: No Rash Neurological: No Dizziness, No Focal Weakness, No Sensory Changes Psychological: No Symptoms Endocrine: No Symptoms All Other Systems: Reviewed and Negative - Past Medical History Pertinent Past Medical History: Yes Neurological History: Peripheral Neuropathy, Stroke, Other ENT History: Cataracts Cardiac History: No Pertinent History, High Cholesterol, Hypertension, Myocardial Infarction ([place]) Respiratory History: COPD, Pneumonia Endocrine Medical History: Hypothyroidism Musculoskeletal History: Arthritis, Bone Cancer GI Medical History: Cirrhosis, Esophageal Disorder, GERD History: Renal Disease Psycho-Social History: No Pertinent History Male Reproductive Disorders: No Pertinent History Other Medical History: parkinson - Past Surgical History Past Surgical History: Yes Neuro Surgical History: No Pertinent History Cardiac: No Pertinent History Respiratory: No Pertinent History Gastrointestinal: No Pertinent History, Hernia Repair Genitourinary: No Pertinent History Musculoskeletal: Orthopedic Surgery Male Surgical History: No Pertinent History Other Surgical History: 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 - Social History Smoking Status: Former smoker Exposure to second hand smoke: No Drug Use: none Patient Lives Alone: No Significant Family History: no pertinent family hx - Nursing Vital Signs Nursing Vital Signs: Initial Vital Signs Temperature 97.8 F 04/28/17 20:14 Pulse Rate 86 04/28/17 20:14 Respiratory Rate 28 H 04/28/17 20:14 Blood Pressure 99/49 04/28/17 20:14 O2 Sat by Pulse Oximetry 88 L 04/28/17 20:14 Pain Scale Pain Intensity 3 - Physical Exam General Appearance: no apparent distress, alert Eye Exam: PERRL/EOMI Neck Exam: normal inspection, supple Respiratory Exam: diminished breath sounds, wheezing Cardiovascular/Chest Exam: normal heart sounds, regular rate/rhythm Abdominal/Gastrointestinal Exam: soft, No tenderness, No distention, No mass Extremity Exam: non-tender, normal range of motion, normal inspection, no calf tenderness, no pedal edema Neurologic Exam: alert, oriented x 3, cooperative, 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, sensation nml, No motor deficits Skin Exam: normal color, warm, No dry SpO2 Interpretation: borderline oxygenation SpO2: 88 Oxygen Delivery: Room Air - Course Nursing assessment & vital signs reviewed: Yes - Radiology Exams Chest X-ray Interpretation: Reviewed by me, Infiltrates Ordered Tests: Active Orders 24 hr Category Date Time Status Oxygen-ED Only NASAL CANNULA 2 lpm Care 04/28/17 20:38 Active CHEST 2 VIEWS (PA AND LAT) Stat Exams 04/28/17 20:38 Taken CBC W DIFF Stat Lab 04/28/17 20:53 Completed CMP Stat Lab 04/28/17 20:53 Completed Respiratory Nebulizer STAT RT 04/28/17 20:39 Active Medication Summary Discontinued Medications Generic Name Dose Route Start Last Admin Trade Name Freq PRN Reason Stop Dose Admin Albuterol/Ipratropium 3 ml 04/28/17 20:38 04/28/17 21:05 Duoneb 0.5-3 Mg/3 Ml Neb IH 04/28/17 20:39 3 ml STAT ONE Administration Albuterol/Ipratropium Confirm 04/28/17 20:48 Duoneb 0.5-3 Mg/3 Ml Neb Administered 04/28/17 20:49 Dose 3 ml IH .STK-MED ONE Ceftriaxone Sodium/Dextrose 1 g in 50 mls @ 100 mls/hr 04/28/17 20:38 21:05 Rocephin 1 Gm-D5w 50 Ml Bag IV 04/28/17 21:07 100 mls/hr STAT STA Administration Sodium Chloride 1,000 mls @ 999 mls/hr 04/28/17 20:38 04/28/17 21:04 Sodium Chloride 0.9% 1000 Ml IV 04/28/17 21:38 999 mls/hr .Q1H1M STA Administration Azithromycin 500 mg in 250 mls @ 250 mls/hr 04/28/17 20:38 Zithromax 500 Mg/ 250 Ml Nacl Premix IV 04/28/17 21:37 STAT STA Sodium Chloride Confirm 04/28/17 20:49 Sodium Chloride 0.9% 1000 Ml Administered 04/28/17 20:50 Dose 1,000 mls @ ud .ROUTE .STK-MED ONE Ceftriaxone Sodium/Dextrose Confirm 04/28/17 20:49 Rocephin 1 Gm-D5w 50 Ml Bag Administered 04/28/17 20:50 Dose 1 g in 50 mls @ ud IV .STK-MED ONE Azithromycin Confirm 04/28/17 21:14 Zithromax 500 Mg/ 250 Ml Nacl Premix Administered 04/28/17 21:15 Dose 500 mg in 250 mls @ ud IV .STK-MED ONE Methylprednisolone Sodium Succinate 80 mg 04/28/17 20:38 04/28/17 21:05 Solu-Medrol 125 Mg IV 04/28/17 20:39 80 mg STAT ONE Administration Methylprednisolone Sodium Succinate Confirm 04/28/17 20:49 Solu-Medrol 125 Mg Administered 04/28/17 20:50 Dose 125 mg .ROUTE .STK-MED ONE Lab/Rad Data: Laboratory Result Diagrams 04/28/17 20:53 04/28/17 20:53 Laboratory Results 04/28/17 04/28/17 Range/Units 20:53 20:53 WBC 8.0 (4.0-10.5) K/mm3 RBC 4.24 (4.1-5.6) M/mm3 Hgb 12.5 (12.5-18.0) gm/dl Hct 39.3 L (42-50) % MCV 92.7 (78-100) fl MCH 29.5 (26-32) pg MCHC 31.8 L (32-36) g/dl RDW 15.1 H (11.5-14.0) % Plt Count 145 L (150-450) K/mm3 MPV 12.3 H (6-9.5) fl Gran % 85.6 H (36.0-66.0) % Lymphocytes % 8.1 L (24.0-44.0) % Monocytes % 6.1 (0.0-12.0) % Eosinophils % 0.1 (0.00-5.0) % Basophils % 0.1 (0.0-0.4) % Basophils # 0.01 (0-0.4) Sodium 141 (136-145) mEq/L Potassium 4.7 (3.5-5.1) mEq/L Chloride 105 (98-107) mEq/L Carbon Dioxide 21.8 (21-32) mEq/L Anion Gap 18.8 H (5-15) MEQ/L BUN 40 H (9-20) mg/dL Creatinine 1.46 H (0.55-1.30) mg/dl Estimated GFR 49 ML/MIN Glucose 97 (70-110) MG/DL Calcium 8.6 (8.5-10.1) mg/dL Total Bilirubin 0.60 (0.2-1.0) mg/dL AST 58 H (15-37) U/L ALT 8 L (12-78) U/L Alkaline Phosphatase 115 (46-116) U/L Serum Total Protein 6.4 (6.4-8.2) gm/dL Albumin 2.7 L (3.4-5.0) g/dL - Progress Progress: re-examined Air Movement: fair Blood Culture(s) Obtained: Yes Antibiotics given: Yes Counseled pt/family regarding: lab results, diagnosis, need for follow-up, rad results - Departure Time of Disposition: 21:52 Departure Disposition: Home Clinical Impression: Pneumonia Qualifiers: Pneumonia type: aspiration pneumonia Aspiration pneumonia type: unspecified Laterality: bilateral Lung location: lower lobe of lung Qualified Code(s): J69.0 - Pneumonitis due to inhalation of food and vomit Condition: Stable Critical Care Time: Yes Critical Care Time(excluding separately billable procedures): 30-74 minutes Referrals: RAQUEL ADAMES MD [Primary Care Provider] - Instructions: Pneumonia -- Adult Additional Instructions: Please be advised that when you swallow put your chin down so that you can minimize aspiration of food, as well as your saliva into your lungs. You are given a intravenous antibiotic in the emergency room and you are given prescription of oral antibiotic for 7 days. Please follow up with your primary care physician in next 2-3 days. If your symptoms get worse, come back to the emergency room. Prescriptions: Levofloxacin [Levaquin 500 MG Tablet] 500 mg PO QAM #7 tablet
[2017-04-28] MEDS ORDERED: solu-MEDROL 125 MG ONE (20:49)
[2017-04-28] MEDS ORDERED: Sodium Chloride 0.9% 1000 ML 1,000 ML ONE (20:49)
[2017-04-28] MEDS ORDERED: ROCEPHIN 1 Gm-D5w 50 ml Bag** 1 G/50 ML IVPB IV ONE (20:49)
[2017-04-28 20:57] LABS: BASOPHIL % 0.1 % (0.0-0.4); Basophil (Absolute #) 0.01 (0-0.4); Eosinophil % 0.1 % (0.00-5.0); Eosinophil (Absolute #) 0.01 (0-0.5); Granulocyte Absolute (ANC) 6.87 (1.4-6.9); Granulocytes % 85.6 % (36.0-66.0); Hematocrit 39.3 % (42-50); Hemoglobin 12.5 gm/dl (12.5-18.0); Lymphocyte (Absolute #) 0.65 (1.0-4.6); Lymphocytes % 8.1 % (24.0-44.0); Mean Cell Volume 92.7 fl (78-100); Mean Corpuscular Hemoglobin 29.5 pg (26-32); Mean Corpuscular Hgb Concent. 31.8 g/dl (32-36); Mean Platelet Volume 12.3 fl (6-9.5); Monocyte (Absolute #) 0.49 (0.0-1.3); Monocytes % 6.1 % (0.0-12.0); Platelet Count 145 K/mm3 (150-450); Red Blood Count 4.24 M/mm3 (4.1-5.6); Red Cell Distribution Width 15.1 % (11.5-14.0)
[2017-04-28] MEDS ORDERED: Zithromax 500 MG/ 250 ML NaCl Premix 500 MG/250 ML IVPB IV ONE (21:14)
[2017-04-28 21:36] LABS: ALBUMIN 2.7 g/dL (3.4-5.0); ANION GAP 18.8 MEQ/L (5-15); BILIRUBIN,TOTAL 0.6 mg/dL (0.2-1.0); Calcium 8.6 mg/dL (8.5-10.1); Carbon Dioxide 21.8 mEq/L (21-32); Creatinine 1 1.46 mg/dl (0.55-1.30); Potassium 4.7 mEq/L (3.5-5.1); Total Protein 6.4 gm/dL (6.4-8.2)
[2017-04-28 21:54] VITALS: PULSE 78; O2SAT 96
--- NOTE | 2017-04-29 07:56 | XRAY ---
Indication: Fever, cough, short of breath. Comparison: January 23, 2017. AP/lateral chest again demonstrates chronic lung markings, large calcified subcarinal node, and hiatal hernia. No focal infiltrate, consolidation, or large effusion. Heart is not enlarged. Vascularity normal. Bony thorax intact again with osteopenia and degenerative changes. Impression: Nonacute chest with chronic features.
== END 2017-04-28 22:58 | disposition home or self-care (01) ==
LOC: ED 20:02
DX: J69.0 Pneumonitis due to inhalation of food and vomit (principal); R06.02 Shortness of breath; G20 Parkinson's disease; J44.9 Chronic obstructive pulmonary disease, unspecified; I11.9 Hypertensive heart disease without heart failure; Z79.899 Other long term (current) drug therapy; I10 Essential (primary) hypertension; I25.2 Old myocardial infarction; E78.00 Pure hypercholesterolemia, unspecified; E03.9 Hypothyroidism, unspecified
CPT/HCPCS: 36000; 36415; 71020; 80053; 85025; 94640; 96360; 96361; 96365; 96366; 96374; 99284; J0456; J0696; J2930; A9270-GY

== ENCOUNTER 2017-05-10 17:05 | Observation (INO) | payer MEDICARE ==
[2017-05-10 18:16] LABS: BASOPHIL % 0.2 % (0.0-0.4); Basophil (Absolute #) 0.03 (0-0.4); Eosinophil % 1.1 % (0.00-5.0); Eosinophil (Absolute #) 0.16 (0-0.5); Granulocyte Absolute (ANC) 11.78 (1.4-6.9); Granulocytes % 83.7 % (36.0-66.0); Hematocrit 34.5 % (42-50); Hemoglobin 11.3 gm/dl (12.5-18.0); Lymphocyte (Absolute #) 1.15 (1.0-4.6); Lymphocytes % 8.2 % (24.0-44.0); Mean Cell Volume 89.6 fl (78-100); Mean Corpuscular Hgb Concent. 32.8 g/dl (32-36); Mean Platelet Volume 10.8 fl (6-9.5); Monocyte (Absolute #) 0.95 (0.0-1.3); Monocytes % 6.8 % (0.0-12.0); Platelet Count 261 K/mm3 (150-450); Red Blood Count 3.85 M/mm3 (4.1-5.6); Red Cell Distribution Width 14.6 % (11.5-14.0); White Blood Count 14.1 K/mm3 (4.0-10.5)
[2017-05-10 18:30] LABS: ANION GAP 14.5 MEQ/L (5-15); BILIRUBIN,TOTAL 0.4 mg/dL (0.2-1.0); Calcium 8.6 mg/dL (8.5-10.1); Carbon Dioxide 22.3 mEq/L (21-32); Creatinine 1 1.45 mg/dl (0.55-1.30); Potassium 4.2 mEq/L (3.5-5.1); Total Protein 7.3 gm/dL (6.4-8.2)
--- NOTE | 2017-05-10 18:31 | ERPHSYRPT ---
- History of Present Illness Time Seen by Provider: 05/10/17 18:00 Source: patient, family Exam Limitations: no limitations Patient Subjective Stated Complaint: pt here for infection to right foot, mrsa to foot,has had ulcer for a long time and sees a specialist and is on antibotics. Triage Nursing Assessment: pt here for increase in wbc andulser to foot getting worse, alert, resp easy, skin w/d pink Physician History: the patient presents with right lower foot ulcer. patient has had chronic bilateral foot ulcer, has been treated by his creative consultant. Patient states this past week he noticed increase in redness and swelling to the right lower extremity, along with increasing size of right foot ulcer on mid sole area. Patient also had WBC 2 days ago and was noted to be elevated > 20K. Patient with some questionable fever/chills. Method of Injury: unknown Occurred: last week Quality: constant Severity of Pain-Max: moderate Severity of Pain-Current: moderate Lower Extremities Pain: foot: right (Non healing R mid sole foot ulcer ) Modifying Factors: Improves With: nothing Associated Symptoms: none Allergies/Adverse Reactions: vancomycin Allergy (Severe, Verified 05/10/17 17:30) aspirin Adverse Reaction (Severe, Verified 05/10/17 17:30) Home Medications: Clopidogrel Bisulfate 75 mg [PLAVIX 75 MG Tablet] 75 mg PO DAILY 10/19/12 [History] Levothyroxine Sodium 75 Mcg [Synthroid 75 Mcg] 75 mcg PO DAILY 10/19/12 [ History] Methyl-B12/l-Mefolate/B6 Phos [Metanx Tablet] 1 each PO DAILY 10/19/12 [History] Metoprolol Tartrate 25 mg [Lopressor 25MG Tab] 25 mg PO BID 10/19/12 [ History] Pramipexole Di-HCl [Pramipexole Dihydrochloride] 1 mg PO BID 10/19/12 [History] Rasagiline Mesylate [Azilect] 1 mg PO DAILY 10/19/12 [History] Simvastatin 10 mg [Zocor 10MG] 10 mg PO DAILY 03/11/13 [History] Ferrous Sulfate 325 mg [Feosol 325 mg] 325 ng PO DAILY 12/31/14 [History] PANTOPRAZOLE 40 mg Tablet [Protonix 40MG Tablet] 40 mg PO DAILY 12/31/14 [ History] Albuterol 2.5 mg/0.5 ml [PROVENTIL Solution 2.5 MG/0.5 ML] 2.5 mg IH Q4H PRN PRN 01/22/17 [History] Alpha Lipoic Acid 200 mg PO BID 01/22/17 [History] Ascorbic Acid 500 mg [Vitamin C 500 MG] 500 mg PO DAILY 01/22/17 [History] Carbidopa/Levodopa [Sinemet 25-100 mg Tablet] 1 each PO TID 01/22/17 [History] Furosemide 20 mg [Lasix 20 mg] 20 mg PO UD 01/22/17 [History] Midodrine HCl 5 mg [Proamatine 5 mg] 5 mg PO TID 01/22/17 [History] Potassium Chloride 10 Meq Tab* [Klor Con 10 MEQ] 10 meq PO UD 01/22/17 [ History] Pregabalin [Lyrica] 200 mg PO BID 01/22/17 [History] Hx Tetanus, Diphtheria Vaccination/Date Given: Yes Hx Influenza Vaccination/Date Given: Yes Hx Pneumococcal Vaccination/Date Given: Yes - Review of Systems Constitutional: Fever, No Chills Eyes: No Symptoms Ears, Nose, & Throat: No Symptoms Respiratory: No Cough, No Dyspnea Cardiac: No Chest Pain, No Edema, No Syncope Abdominal/Gastrointestinal: No Abdominal Pain, No Nausea, No Vomiting, No Diarrhea Genitourinary Symptoms: No Dysuria Musculoskeletal: No Back Pain, No Neck Pain Skin: Other (R foot ulcer that is open/L healed foot ulcer also noted), No Rash Neurological: No Dizziness, No Focal Weakness, No Sensory Changes Psychological: No Symptoms Endocrine: No Symptoms All Other Systems: Reviewed and Negative - Past Medical History Pertinent Past Medical History: Yes (o he's been in the c) Neurological History: Peripheral Neuropathy, Stroke, Other ENT History: Cataracts Cardiac History: No Pertinent History, High Cholesterol, Hypertension, Myocardial Infarction ([place]) Respiratory History: COPD, Pneumonia Endocrine Medical History: Hypothyroidism Musculoskeletal History: Arthritis, Bone Cancer GI Medical History: Cirrhosis, Esophageal Disorder, GERD History: Renal Disease Psycho-Social History: No Pertinent History Male Reproductive Disorders: No Pertinent History Other Medical History: parkinson - Past Surgical History Past Surgical History: Yes Neuro Surgical History: No Pertinent History Cardiac: No Pertinent History Respiratory: No Pertinent History Gastrointestinal: No Pertinent History, Hernia Repair Genitourinary: No Pertinent History Musculoskeletal: Orthopedic Surgery Male Surgical History: No Pertinent History Other Surgical History: 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 - Social History Smoking Status: Former smoker Exposure to second hand smoke: No Drug Use: none Patient Lives Alone: No Significant Family History: no pertinent family hx - Nursing Vital Signs Nursing Vital Signs: Initial Vital Signs Temperature 97.8 F 05/10/17 17:23 Pulse Rate 80 05/10/17 17:23 Respiratory Rate 16 05/10/17 17:23 Blood Pressure 131/61 05/10/17 17:23 O2 Sat by Pulse Oximetry 94 L 05/10/17 17:23 Pain Scale Pain Intensity 4 - Physical Exam General Appearance: alert Eyes, Ears, Nose, Throat Exam: moist mucous membranes Neck Exam: non-tender, supple Cardiovascular/Respiratory Exam: chest non-tender, normal breath sounds, regular rate/rhythm, no respiratory distress Gastrointestinal/Abdominal Exam: non-tender, guarding Back Exam: normal inspection, No vertebral tenderness Ankle Exam: right ankle: swelling (swelling/erythema up to mid calf with warmthness to skin) Foot Exam: right foot: infection (mid sole foot ulcer 2X2X1 cm non-healing ulcer ), swelling (+2 non-pitting edema), left foot: other (Small healed mid sole ulcer) DTR - Lower Extremities Exam: knee (R): 2+, knee (L): 2+ Neuro/Tendon Exam: normal sensation, normal motor functions Mental Status Exam: alert, oriented x 3, cooperative Skin Exam: other (patient with noticeable cellulitis up to mid calf with surrounding erythema/warmth to skin.) SpO2: 94 Oxygen Delivery: Room Air - Course Nursing assessment & vital signs reviewed: Yes - Radiology Exams Right Foot X-ray Interpretation: Interpreted by me, No Fracture, Other (No osteolytic lesions) Ordered Tests: Active Orders 24 hr Category Date Time Status FOOT (MINIMUM 3 VIEWS) Stat Exams 05/10/17 17:41 Taken CBC W DIFF Stat Lab 05/10/17 18:10 Completed CMP Stat Lab 05/10/17 18:10 Completed Lactic Acid Stat Lab 05/10/17 18:05 Results Medication Summary Generic Name Dose Route Start Last Admin Trade Name Shakeel PRN Reason Stop Dose Admin Piperacillin Sod/Tazobactam Sod 3.375 gm in 100 mls @ 200 mls/hr 05/10/17 18: 39 Zosyn 3.375gm/100 Ml D5w IV 05/10/17 19:08 STAT STA Lab/Rad Data: Laboratory Result Diagrams 05/10/17 18:10 05/10/17 18:10 Laboratory Results 05/10/17 05/10/17 05/10/17 Range/Units 18:10 18:10 18:05 WBC 14.1 H (4.0-10.5) K/mm3 RBC 3.85 L (4.1-5.6) M/mm3 Hgb 11.3 L (12.5-18.0) gm/dl Hct 34.5 L (42-50) % MCV 89.6 (78-100) fl MCH 29.3 (26-32) pg MCHC 32.8 (32-36) g/dl RDW 14.6 H (11.5-14.0) % Plt Count 261 (150-450) K/mm3 MPV 10.8 H (6-9.5) fl Gran % 83.7 H (36.0-66.0) % Lymphocytes % 8.2 L (24.0-44.0) % Monocytes % 6.8 (0.0-12.0) % Eosinophils % 1.1 (0.00-5.0) % Basophils % 0.2 (0.0-0.4) % Basophils # 0.03 (0-0.4) Sodium 141 (136-145) mEq/L Potassium 4.2 (3.5-5.1) mEq/L Chloride 108 H (98-107) mEq/L Carbon Dioxide 22.3 (21-32) mEq/L Anion Gap 14.5 (5-15) MEQ/L BUN 29 H (9-20) mg/dL Creatinine 1.45 H (0.55-1.30) mg/dl Estimated GFR 50 ML/MIN Glucose 102 (70-110) MG/DL Lactic Acid 2.0 (0.4-2.0) Calcium 8.6 (8.5-10.1) mg/dL Total Bilirubin 0.40 (0.2-1.0) mg/dL AST 24 (15-37) U/L ALT 16 (12-78) U/L Alkaline Phosphatase 94 (46-116) U/L Serum Total Protein 7.3 (6.4-8.2) gm/dL Albumin 2.0 L (3.4-5.0) g/dL - Progress Progress: unchanged Progress Note: 05/10/17 18:38 Will start Zosyn 3.375gm. Attempted to admit to [facility], but not beds available. Will admit to Dr. Adames until bed becomes available at [facility]. 05/10/17 18:54 Discussed with : Maria Elena Will see patient in: hospital (observation) Counseled pt/family regarding: lab results, diagnosis, rad results - Departure Time of Disposition: 18:50 Departure Disposition: Observation Clinical Impression: Right foot ulcer, Cellulitis of right lower leg Condition: Stable Critical Care Time: No Referrals: RAQUEL ADAMES MD [Primary Care Provider] -
[2017-05-10] MEDS ORDERED: Zosyn 3.375GM/100 Ml D5W 3.375 GM/100 ML IVPB IV STA (18:39)
[2017-05-10 18:42] LABS: Mean Corpuscular Hemoglobin 29.3 pg (26-32)
[2017-05-10] MEDS ORDERED: Zosyn 3.375GM/100 Ml D5W 3.375 GM/100 ML IVPB IV ONE (19:04)
[2017-05-10] MEDS ORDERED: LYRICA 100MG ONE (23:42)
[2017-05-10] MEDS ORDERED: Sinemet 25/100 MG ONE (23:43)
[2017-05-10] MEDS ORDERED: Protonix 40MG Tablet ONE (23:43)
[2017-05-10] MEDS ORDERED: Mirapex 0.5 MG Tablet ONE (23:43)
[2017-05-10] MEDS ORDERED: Lopressor 25MG Tab ONE (23:44)
[2017-05-10] MEDS ORDERED: PROAMATINE 5 MG PO ONE (23:55)
[2017-05-10] MEDS ORDERED: Sinemet 25/100 MG PO ONE (23:55)
[2017-05-11] MEDS: Zosyn 3.375GM/100 Ml D5W 3.375 GM/100 ML IVPB IV SCH ×3 (00:19→11:19)
[2017-05-11 06:29] LABS: BASOPHIL % 0.2 % (0.0-0.4); Basophil (Absolute #) 0.02 (0-0.4); Eosinophil (Absolute #) 0.27 (0-0.5); Granulocyte Absolute (ANC) 11.27 (1.4-6.9); Hematocrit 31.7 % (42-50); Hemoglobin 10.4 gm/dl (12.5-18.0); Lymphocyte (Absolute #) 1.04 (1.0-4.6); Lymphocytes % 7.8 % (24.0-44.0); Mean Cell Volume 88.8 fl (78-100); Mean Corpuscular Hemoglobin 29.1 pg (26-32); Mean Corpuscular Hgb Concent. 32.8 g/dl (32-36); Mean Platelet Volume 11.3 fl (6-9.5); Monocyte (Absolute #) 0.66 (0.0-1.3); Platelet Count 247 K/mm3 (150-450); Red Blood Count 3.57 M/mm3 (4.1-5.6); Red Cell Distribution Width 14.3 % (11.5-14.0); White Blood Count 13.3 K/mm3 (4.0-10.5)
[2017-05-11 06:52] LABS: ANION GAP 13.2 MEQ/L (5-15); BLOOD UREA NITROGEN 24 mg/dL (9-20); CHLORIDE 108 mEq/L (98-107); Calcium 8.5 mg/dL (8.5-10.1); Carbon Dioxide 23.4 mEq/L (21-32); Creatinine 1 1.12 mg/dl (0.55-1.30); EST GLOMERULAR FILTRATION RATE > 60 ML/MIN; Glucose 83 MG/DL (70-110); Potassium 4.1 mEq/L (3.5-5.1); SODIUM 141 mEq/L (136-145)
[2017-05-11] MEDS ORDERED: PROVENTIL Solution 2.5 MG/0.5 ML IH PRN (06:53)
[2017-05-11] MEDS ORDERED: Klor Con 10 MEQ PO SCH (07:00)
[2017-05-11] MEDS ORDERED: PROVENTIL 2.5 MG/3 ML NEB IH PRN (07:09)
[2017-05-11] MEDS ORDERED: MEDICATION INTERVENTION MC SCH (07:15)
[2017-05-11 08:37] VITALS: O2SAT 95
--- NOTE | 2017-05-11 08:38 | XRAY ---
Indication: Pain. History Charcot's joint. Comparison: May 04, 2017. 3 nonweightbearing views of the right foot unchanged again demonstrating amputation of the distal second phalanx and moderate/advanced degenerative changes of the 2nd metatarsal cuneiform articulation. No new/acute bony, articular, or soft tissue abnormalities.
[2017-05-11] MEDS ORDERED: METHYL B12 PO SCH (10:00)
[2017-05-11] MEDS ORDERED: PROAMATINE 5 MG PO SCH (10:00)
[2017-05-11] MEDS ORDERED: LYRICA 100MG PO SCH (10:00)
[2017-05-11] MEDS ORDERED: Lopressor 25MG Tab PO SCH (10:00)
[2017-05-11] MEDS ORDERED: MEFOLATE PO SCH (10:00)
[2017-05-11] MEDS ORDERED: Vitamin C 500 MG PO SCH (10:00)
[2017-05-11] MEDS ORDERED: PLAVIX 75 MG Tablet PO SCH (10:00)
[2017-05-11] MEDS ORDERED: SYNTHROID 75 MCG PO SCH (10:00)
[2017-05-11] MEDS ORDERED: ZOCOR 20MG PO SCH (10:00)
[2017-05-11] MEDS ORDERED: FOLTX (FOLBIC) PO SCH (10:00)
[2017-05-11] MEDS ORDERED: Mirapex 0.5 MG Tablet PO SCH (10:00)
[2017-05-11] MEDS ORDERED: RASAGILINE MESYLATE 1 MG PO SCH (10:00)
[2017-05-11] MEDS ORDERED: B6 PHOS PO SCH (10:00)
[2017-05-11] MEDS ORDERED: Sinemet 25/100 MG PO SCH (10:00)
[2017-05-11] MEDS ORDERED: PREGABALIN 200 MG PO SCH (10:00)
[2017-05-11] MEDS ORDERED: FEOSOL 325 MG PO SCH (10:00)
[2017-05-11 11:30] VITALS: BP 124/66; PULSE 67
--- NOTE | 2017-05-11 12:55 | PCM.HP ---
History of Present Illness - Chief Complaint Chief Complaint: ulcer on right foot History of Present Illness: is a 81 year old male.the patient presents with right lower foot ulcer. 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 Patient states this past week he noticed increase in redness and swelling to the right lower extremity, along with increasing size of right foot ulcer on mid sole area. Patient also had WBC 2 days ago and was noted to be elevated > 20K. Patient with some questionable fever/chills. Method of Injury: unknown Occurred: last week Quality: constant Severity of Pain-Max: moderate Severity of Pain-Current: moderate Lower Extremities Pain: foot: right (Non healing R mid sole foot ulcer ) Modifying Factors: Improves With: nothing Associated Symptoms: none - Review of Systems Constitutional: No Fever, No Chills Eyes: No Symptoms Ears, Nose, & Throat: No Symptoms Respiratory: No Cough, No Short Of Breath Cardiac: No Chest Pain, No Edema, No Syncope Abdominal/Gastrointestinal: No Abdominal Pain, No Nausea, No Vomiting, No Diarrhea Genitourinary Symptoms: No Dysuria Musculoskeletal: No Back Pain, No Neck Pain Skin: Cellulitis, No Rash Neurological: No Dizziness, No Focal Weakness, No Sensory Changes Psychological: No Symptoms Endocrine: No Symptoms Hematologic/Lymphatic: No Symptoms Immunological/Allergic: No Symptoms Medications & Allergies Home Medications: Home Medication List Clopidogrel Bisulfate 75 mg [PLAVIX 75 MG Tablet] 75 mg PO DAILY 10/19/12 [History Confirmed 05/10/17] Levothyroxine Sodium 75 Mcg [Synthroid 75 Mcg] 75 mcg PO DAILY 10/19/12 [ History Confirmed 05/10/17] Methyl-B12/l-Mefolate/B6 Phos [Metanx Tablet] 1 each PO BID 10/19/12 [History Confirmed 05/10/17] Metoprolol Tartrate 25 mg [Lopressor 25MG Tab] 25 mg PO BID 10/19/12 [ History Confirmed 05/10/17] Rasagiline Mesylate [Azilect] 1 mg PO DAILY 10/19/12 [History Confirmed 05/10/17 ] Ferrous Sulfate 325 mg [Feosol 325 mg] 325 ng PO DAILY 12/31/14 [History Confirmed 05/10/17] Albuterol 2.5 mg/0.5 ml [PROVENTIL Solution 2.5 MG/0.5 ML] 2.5 mg IH Q4H PRN PRN 01/22/17 [History Confirmed 05/10/17] Carbidopa/Levodopa [Sinemet 25-100 mg Tablet] 1 each PO TID 01/22/17 [History Confirmed 05/10/17] Furosemide 20 mg [Lasix 20 mg] 20 mg PO UD 01/22/17 [History Confirmed 02/15] Pregabalin [Lyrica] 200 mg PO BID 01/22/17 [History Confirmed 05/10/17] Alpha Lipoic Acid 200 mg PO BID 05/10/17 [History Confirmed 05/10/17] Ascorbic Acid 500 mg [Vitamin C 500 MG] 500 mg PO DAILY 05/10/17 [History Confirmed 05/10/17] Ferrous Sulfate 325 mg [Feosol 325 mg] 1 tab PO DAILY 05/10/17 [History Confirmed 05/10/17] Midodrine HCl 5 mg [Proamatine 5 mg] 5 mg PO TID 05/10/17 [History Confirmed 05/10/17] Pantoprazole 20 mg [Protonix 20MG Tablet] 40 mg PO HS 05/10/17 [History Confirmed 05/10/17] Potassium Chloride 10 Meq Tab* [Klor Con 10 MEQ] 10 meq PO UD 05/10/17 [ History Confirmed 05/10/17] Pramipexole Di-HCl [Mirapex] 1 mg PO BID 05/10/17 [History Confirmed 05/10/17] Simvastatin 20Mg [Zocor 20Mg] 10 mg pe PO DAILY 05/10/17 [History Confirmed 05/10/17] Allergies/Adverse Reactions: Allergies Allergy/AdvReac Type Severity Reaction Status Date / Time vancomycin Allergy Severe Verified 05/10/17 17:30 aspirin AdvReac Severe Verified 05/10/17 17:30 - Past Medical History Past Medical History: Yes (o he's been in the c) Neurological History: Peripheral Neuropathy, Stroke, Other ENT History: Cataracts Cardiac History: No Pertinent History, High Cholesterol, Hypertension, Myocardial Infarction (VT) Respiratory History: COPD, Pneumonia Endocrine Medical History: Hypothyroidism Musculoskelatal History: Arthritis, Bone Cancer GI Medical History: Cirrhosis, Esophageal Disorder, GERD History: Renal Disease Pyscho-Social History: No Pertinent History Male Reproductive Disorders: No Pertinent History Comment: parkinson - Past Surgical History Past Surgical History: Yes Neuro Surgical History: No Pertinent History Cardiac History: No Pertinent History Respiratory Surgery: No Pertinent History GI Surgical History: No Pertinent History, Hernia Repair Genitourinary Surgical Hx: No Pertinent History Musculskeletal Surgical Hx: Orthopedic Surgery Male Surgical History: No Pertinent History Other Surgical History: 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 - Social History Smoking Status: Former smoker Exposure to second hand smoke: No Alcohol: Rarely Drug Use: none Significant Family History: no pertinent family hx - Physical Exam Vital Signs: Vital Signs - 24 hr Temp Pulse Resp BP Pulse Ox 05/11/17 11:29 97.9 F 67 18 124/66 95 05/11/17 08:18 73 19 95 05/11/17 07:03 97.7 F 73 18 127/59 93 L 05/11/17 04:00 98.8 F 69 22 120/56 94 L 05/11/17 00:37 78 20 94 L 05/11/17 00:19 99.0 F 73 22 116/57 89 L 05/10/17 23:15 99.0 F 73 22 116/57 89 L 05/10/17 19:26 76 20 126/58 98 05/10/17 19:16 70 16 140/80 94 L 05/10/17 18:55 94 L 05/10/17 17:23 97.8 F 80 16 131/61 94 L Oxygen-Last 24 hours O2 Percentage 3 Liters = 32% O2 Percentage 3 Liters = 32% O2 Percentage 3 Liters = 32% General Appearance: no apparent distress, alert Neurologic Exam: alert, oriented x 3, cooperative, normal mood/affect, nml cerebellar function, nml station & gait, sensation nml, No motor deficits Eye Exam: PERRL/EOMI, eyes nml inspection Ears, Nose, Throat Exam: normal ENT inspection, TMs normal, pharynx normal, moist mucous membranes Neck Exam: normal inspection, non-tender, supple, full range of motion Respiratory Exam: normal breath sounds, lungs clear, No respiratory distress Cardiovascular Exam: regular rate/rhythm, normal heart sounds, normal peripheral pulses Gastrointestinal/Abdomen Exam: soft, normal bowel sounds, No tenderness, No mass Back Exam: normal inspection, normal range of motion, No CVA tenderness, No vertebral tenderness Extremity Exam: normal inspection, normal range of motion, pelvis stable Skin Exam: warm, dry, other (right foot ulcer), No rash Lymphatic Exam: No adenopathy Results - Labs Lab/Micro Results: Lab Results-Last 24 Hours 05/11/17 05/11/17 Range/Units 06:03 06:03 WBC 13.3 H (4.0-10.5) K/mm3 RBC 3.57 L (4.1-5.6) M/mm3 Hgb 10.4 L (12.5-18.0) gm/dl Hct 31.7 L (42-50) % MCV 88.8 (78-100) fl MCH 29.1 (26-32) pg MCHC 32.8 (32-36) g/dl RDW 14.3 H (11.5-14.0) % Plt Count 247 (150-450) K/mm3 MPV 11.3 H (6-9.5) fl Gran % 85.0 H (36.0-66.0) % Lymphocytes % 7.8 L (24.0-44.0) % Monocytes % 5.0 (0.0-12.0) % Eosinophils % 2.0 (0.00-5.0) % Basophils % 0.2 (0.0-0.4) % Basophils # 0.02 (0-0.4) Sodium 141 (136-145) mEq/L Potassium 4.1 (3.5-5.1) mEq/L Chloride 108 H (98-107) mEq/L Carbon Dioxide 23.4 (21-32) mEq/L Anion Gap 13.2 (5-15) MEQ/L BUN 24 H (9-20) mg/dL Creatinine 1.12 (0.55-1.30) mg/dl Estimated GFR > 60 ML/MIN Glucose 83 (70-110) MG/DL Calcium 8.5 (8.5-10.1) mg/dL - Other Procedures and Tests Respiratory Therapy 05/11/17 00:20 Oxygen NASAL CANNULA 2 lpm 05/11/17 08:30 Respiratory Nebulizer PRN Assessment/Plan (1) Cellulitis of right lower leg Current Visit: Yes Status: Acute Code(s): L03.115 - CELLULITIS OF RIGHT LOWER LIMB (2) Right foot ulcer Current Visit: Yes Status: Acute Code(s): L97.519 - NON-PRS CHRONIC ULCER OTH PRT RIGHT FOOT W UNSP SEVERITY (3) Type 2 diabetes mellitus Current Visit: Yes Status: Acute Qualifiers: Diabetes mellitus complication status: with hyperglycemia Diabetes mellitus terminal worker insulin use: with terminal worker use Qualified Code(s): E11.65 - Type 2 diabetes mellitus with hyperglycemia; Z79.4 - FPC (current) use of insulin; Z79.4 - FPC (current) use of insulin; Z79.4 - FPC ( current) use of insulin; Z79.4 - termite exterminator helper (current) use of insulin (4) Hypertension Current Visit: Yes Status: Acute Qualifiers: Hypertension type: essential hypertension Qualified Code(s): I10 - Essential (primary) hypertension Code(s): I10 - ESSENTIAL (PRIMARY) HYPERTENSION
[2017-05-11] MEDS ORDERED: Protonix 40MG Tablet PO SCH (22:00)
[2017-05-11] MEDS ORDERED: Zocor 10MG PO SCH (22:00)
[2017-05-11] MEDS ORDERED: Protonix 20MG Tablet PO SCH (22:00)
[2017-05-11] MEDS ORDERED: Protonix 40MG Tablet PO ONE (23:55)
[2017-05-11] MEDS ORDERED: Lopressor 25MG Tab PO ONE (23:55)
[2017-05-11] MEDS ORDERED: Mirapex 0.5 MG Tablet PO ONE (23:56)
[2017-05-11] MEDS ORDERED: LYRICA 100MG PO ONE (23:57)
[2017-05-12] MEDS ORDERED: LASIX 20 MG PO SCH (10:00)
== END 2017-05-11 15:20 | disposition short-term general hospital (02) ==
LOC: ED 17:05 → MED SURG 21:32 → INTOOBSV 21:32
PROVIDERS: ADMIT General Practice; ATTEND General Practice
DX: L03.115 Cellulitis of right lower limb (principal); L97.519 Non-pressure chronic ulcer of other part of right foot with unspecified severity; E11.65 Type 2 diabetes mellitus with hyperglycemia; Z79.4 Long term (current) use of insulin; I10 Essential (primary) hypertension; E03.9 Hypothyroidism, unspecified; J44.9 Chronic obstructive pulmonary disease, unspecified; M19.90 Unspecified osteoarthritis, unspecified site; K74.60 Unspecified cirrhosis of liver; G62.9 Polyneuropathy, unspecified; G20 Parkinson's disease; K21.9 Gastro-esophageal reflux disease without esophagitis; Z79.899 Other long term (current) drug therapy; Z85.830 Personal history of malignant neoplasm of bone; I25.2 Old myocardial infarction
CPT/HCPCS: 36415; 73630; 80048; 80053; 83605; 85025; 94760; 96365; 99285; G0378; J2543; A9270-GY